=== PATIENT | female | born 1955 | race Caucasian/White ===

== ENCOUNTER → 2017-07-12 | Day surgery (SDC) | payer OTHER ==
[~2017-07-12] VITALS: Ht 167.6 cm; Wt 72.6 kg
[~2017-07-12] MED LIST: ALBU8.5H2 INHALATION; Atropine 0.4 mg/mL Inj IVPUSH PRN; GABA-502 PO; HYDR25CA PO; IBUP400T22 PO; Lactated Ringer's 1,000 ML IV ONE; Lactated Ringer's 1,000 ML IV SCH; MORP-33 PO; MORP15TA PO; MetoCLOpramide 5 mg/mL 2 mL Inj IVPUSH PRN; Ondansetron 2 mg/mL 2 mL Inj IVPUSH PRN; Propofol 10,000 mCg/mL 20 mL Inj ONE; TRAM50TA2 PO; fentaNYL-PF 50 mCg/mL 2 mL Inj ONE
[2017-07-12 12:04] VITALS: BP 111/72; PULSE 59; RESP 17; O2SAT 96
--- NOTE | 2017-07-12 12:35 | PCM.HPANE ---
Patient Data Surgeon Admitting Provider: Attending Provider:Randal Menezes MD Primary Care Physician:Fawn Monsalve Other Provider:Lisa Juárez Anesthesia Reason for Visit Epigastric Pain Ht/WT & BMI Height (Feet): 5 Height (Inches): 6 Weight (Kilograms): 72.57 Body Mass Index 25.00 Allergies Coded Allergies: Sulfa (Sulfonamide Antibiotics) (Verified Allergy, Severe, HEMATURIA/ kidney issues/HIVES, 07/08/17) amoxicillin (Verified Allergy, Severe, N/V/HIVES, 07/08/17) ciprofloxacin (Verified Allergy, Severe, THROAT SWELLING/HIVES, 07/08/17) erythromycin base (Verified Allergy, Severe, N/V; DIARRHEA/HIVES, 07/08/17) ampicillin (Verified Adverse Reaction, Severe, N/V/HIVES, 07/08/17) codeine (Verified Adverse Reaction, Severe, N/V, 02/14/16) Past Anesthesia History Anesthesia History: Denies:: Abnormal Airway, Anesthesia Reactions, Difficult Intubation, Fam Anesthesia Reaction, Fam Malignant Hypertherm, Malignant Hyperthermia Diabetes History Hx Diabetes?: No MRSA MRSA: No Medications Hypertension Medication: No Home Meds Incl Beta Jc: No Reported Medications Albuterol HFA (Proair HFA)8.5 Gm Hfa.aer.ad2 Puffs INHALATION Q4H #1 INHALER 07/08/17 Morphine Sulfate ER 30 Mg Iqzblh04 Mg PO BID 07/08/17 Morphine Sulfate 15 Mg Dmtnov47 Mg PO 07/08/17 Gabapentin 300 Mg Uqazihe151 Mg PO TID Ref 0 07/08/17 Ibuprofen 400 Mg Brylne952 Mg PO BID PRN For Pain Ref 0 02/15/15 Discontinued Reported Medications Tramadol 50 Mg Fpfqxf17-126 Mg PO TID PRN For Pain Ref 0 07/23/15 Hydroxyzine Pamoate (Vistaril)25 Mg Fvfdikq50 Mg PO QID PRN For Itching Ref 0 04/24/14 Morphine Sulfate CR 30 Mg Tablet.er15 Mg PO BID 02/15/15 History History of ENT Problems?: Yes HEENT History: Denies:: Abnormal Airway Difficult Intubation Dysphagia Hearing Problem Denture Type: Full- Upper Full- Lower Teeth Condition: Missing Teeth Hx of Heart Problems?: Yes Cardiovascular History: Positive for:: Congestive Heart Failure (post surgical episode of edema 12/2014) Denies:: AICD Abdominal Aortic Aneurism Atrial Fibrillation Cardiac Surgery Chest Pain Coronary Artery Disease Edema Heart Murmur Hypertension Irregular Heartbeat Pacemaker Peripheral Vascular Rheumatic Fever Thrombophlebitis Valvular Heart Disease Hx of Respiratory Problem?: No Respiratory History: Denies:: Use of C-PAP Machine Other Resp Pertinent History: hx of bronchitis Hx Neurologic Problems?: No Neurological History: Denies:: CVA Headaches Multiple Sclerosis Parkinson's Disease Seizures Hx of GI Problems?: Yes Hx of Problems?: No Female Hx: Denies:: Currently Problems with Breasts? Skin History: Denies:: History Skin Disorders? Pressure Ulcers Hx Musculoskeletal Problems?: Yes Musculoskeletal History: Positive for:: Joint Replacement (right shoulder) Musculoskeletal Trauma (current injections for right hip pain) Other History/Comment chronic pain Hx of Psycho/Social Problems?: No Psycho Social History: Denies:: Anxiety Hx Depression Hx Surgeries?: Yes (rectal repair,ovarian cyst removed.,tonsillectomy, lips.right shoulder arthr) Hx Any Other Health Problems?: Yes Other History: Denies:: Cancer Thyroid Disease History Blood Transfusions: Denies:: Blood Transfusions Hx Diabetes: No Hx Alcohol Use: NoHx Substance Use: No Smoking Status: Former Smoker Have You Smoked inLast 12 mo: No Stop/Bang Treated for Sleep Apnea?: No Do You Have a CPAP Machine?: No S-Snoring: Do You Snore Loudly: No T-Tired: feel tired, fatigued: No O-Obsered: Observed not breath: No P-Blood Pressure: treated: No B- Body Mass Index > 35 kg/m2: No A- Age over 50: Yes N- Neck Large Circumference: No G- Gender Male: No MARIELA Total Score: 1 MARIELA Risk Assessment: Low Risk, <3 Yes Risk Assessment Category Category 1A: Patient has history of documented sleep apnea, and HAS NOT received any narcotic, sedative or anesthesia administration during this stay. Category 1B: Patient has history of documented sleep apnea, and HAS received any narcotic , sedative or anesthesia administration during this stay Category 2: Patient has SUSPECTED Obstructive Sleep Apnea, and HAS received any narcotic , sedative or anesthesia administration during this stay. Category 3: Patient has SUSPECTED Obstructive Sleep Apnea and HAS NOT received narcotic, sedative or anesthesia administration during this stay. Category 4: Outpatient in Procedural Areas with known sleep apnea or who screen positive for High Risk via the STOP/BANG questionnaire. Exam Exam Vital Signs Vital Signs Date Time Temp Pulse Resp B/P Pulse Ox O2 Delivery O2 Flow Rate FiO2 07/12/17 12:04 59 17 111/72 96 Room Air General Appearance: Alert, Oriented X3, Cooperative, No Acute Distress HEENT/AIRWAY: MP 2 Lungs: Clear to Auscultation, Normal Air Movement Heart: Exam Unremarkable, Regular Rate/Rhythm, No Murmurs/Rubs/Gallops Plan Impression Patient chart reviewed, patient interviewed and anesthestic plan with risks, benefits, and alternatives discussed, and informed consent obtained. NPO per Anesth. Guidelines: Yes ASA Physical Status: ASA3 Severe Disease Anesthetic Plan: GA Bene/Risks/Altern/Consents: Yes HP Complete Prior to Induction: Yes Amadou Ibanez MD Jul 12, 2017 12:35
[2017-07-12 13:00] VITALS: BP 90/62; PULSE 57; RESP 16; O2SAT 97
[2017-07-12 13:10] VITALS: BP 98/66; PULSE 55; RESP 16; O2SAT 97
[2017-07-12 13:20] VITALS: BP 100/64; PULSE 49; RESP 16; O2SAT 98
--- NOTE | 2017-07-12 14:09 | PCM.ANEP1 ---
Post Anesthesia PACU Phase 1 Assessment Vital Signs Vital Signs Date Time Temp Pulse Resp B/P Pulse Ox O2 Delivery O2 Flow Rate FiO2 07/12/17 13:20 49 16 100/64 98 Room Air 07/12/17 13:10 55 16 98/66 97 Room Air 07/12/17 13:00 57 16 90/62 97 Room Air 07/12/17 12:04 59 17 111/72 96 Room Air Anesthetic Administered: GA Level of Alertness: Awake, talking FAIRCHILD's with Equal Strength: Yes Pain: No Nausea or Vomiting: No CV Function & Hydration Stable: Yes Airway Device: Oxygen Delivery: Nasal Cannula Lungs: Clear to Auscultation, Normal Air Movement PACU Phase 2 Assessment Complications: No Follow up Care: N/A Patient Instructions Provided: N/A Amadou Ibanez MD Jul 12, 2017 14:09
--- NOTE | 2017-07-12 20:33 | ENDO ---
[address] [address] ENDOSCOPY PROCEDURE PATIENT: GARY MUJICA : 1955 MR#: [id number] ADMIT: 07/12/2017 JOB ID: [id number] DATE: 07/12/2017 PRIMARY PROVIDER: CHAU Cuenca PROCEDURE: Esophagogastroduodenoscopy with biopsy. INDICATIONS: A 62-year-old female on chronic opiates who has experienced some intermittent nausea, vomiting, epigastric pain, and about a 25-pound weight loss over the last year or so. EGD is therefore pursued. EQUIPMENT: GIF-H180. SEDATION: Monitored anesthesia as provided by Dr. Amadou Ibanez. COMPLICATIONS: None identified. PROCEDURE INFORMATION: After the risks and benefits were explained, written and verbal informed consent was obtained, the patient was brought into the endoscopy suite and placed in the left lateral decubitus position. Sedation was achieved as above. The scope was introduced into the mouth through the bite block and advanced to the second portion of the duodenum. The scope was slowly withdrawn to carefully examine the mucosa for any defects or lesions. Retroflexed views were accomplished in the stomach. The stomach was decompressed, the scope removed from the patient who tolerated the procedure well. FINDINGS: 1. Duodenum: No significant pathology appreciated from the bulb through to the second portion. Considering the patient's symptoms, including weight loss, random biopsies were taken from D2 for exclusion of celiac. 2. Stomach: No mass lesions. No outlet obstruction. No evidence of any retained food debris. The patient had a moderate diffuse gastropathy with some obviously eroded areas in the proximal antrum. The irregular-appearing mucosa was targeted for biopsy x2 and submitted for histopathology/exclusion of H. pylori infection. Otherwise, mucosal exam throughout the stomach was relatively unremarkable including retroflexed views of the LES. 3. Esophagus: The squamocolumnar junction correlated with the top of the gastric folds. The GEJ was at about 39 cm from the incisors. There was evidence of very subtle LA grade A erosive esophagitis. No strictures. No mass lesions. No other pathology noted throughout. ENDOSCOPIC DIAGNOSES: 1. Subtle sliding hiatal hernia (not mentioned above). 2. Henry grade A erosive esophagitis. 3. Erosive gastropathy. RECOMMENDATIONS: 1. Await histopathology. 2. Consider anti-reflux therapy. 3. In that we did not identify the source for the patient's symptoms including the 25-pound weight loss, CT abdomen and pelvis is again requested.
--- NOTE | 2017-07-14 12:15 | PATH ---
SURGICAL PATHOLOGY Attending Physician:Paddy Andrade CASE STATUS: Signed Out PATIENT NAME: GARY MUJICA PID: [id number] : 1955 DATE COLLECTED:07/12/2017 20:23 SPECIMEN: 1: Duodenum, Biopsy 2: Gastric, Biopsy CLINICAL HISTORY: 1). DUODENUM BIOPSY 2). GASTRIC BIOPSY, RULE OUT H PYLORI FINAL DIAGNOSIS: 1.DUODENUM, BIOPSY: SMALL BOWEL MUCOSA WITH NO DIAGNOSTIC ABNORMALITY. Negative for inflammation, histologic evidence of celiac disease, granulomas, dysplasia and malignancy. 2.GASTRIC BIOPSY: ANTRAL AND BODY MUCOSA WITH NO DIAGNOSTIC ABNORMALITY. Negative for inflammation and Helicobacter organisms. Negative for intestinal metaplasia, dysplasia and malignancy. ICD10 R10.13 GROSS DESCRIPTION: The specimen is received in two formalin filled containers labeled with the patient's name. 1). The specimen is labeled "duodenum" and consists of 2 portions of tissue which aggregate to 0.2 x 0.2 x 0.2 CM. The specimen is entirely submitted in cassette 1A. 2). The specimen is labeled "gastric" and consists of 2 portions of tissue which aggregate to 0.2 x 0.2 x 0.2 CM. The specimen is entirely submitted in cassette 2A. 07/12/2017KY MICRO DESCRIPTION: See diagnosis. ICD-9 CODES: CPT CODES: 1: 72269 2: 66309 Electronically Signed Out Geo Ballesteros MD, PhD [facility] Pathology [facility], [place] [address] Technical component performed at [facility], [address] [place] [address] [address], [place], [address]
== END | disposition home or self-care (01) ==
LOC: END 00:21
PROVIDERS: ATTEND Internal Medicine Gastroenterology
DX: K44.9 Diaphragmatic hernia without obstruction or gangrene (principal); K22.10 Ulcer of esophagus without bleeding; K31.9 Disease of stomach and duodenum, unspecified; R10.13 Epigastric pain; R63.4 Abnormal weight loss; B18.2 Chronic viral hepatitis C; I50.9 Heart failure, unspecified; K21.9 Gastro-esophageal reflux disease without esophagitis; M81.0 Age-related osteoporosis without current pathological fracture; M54.5 Low back pain; Z79.891 Long term (current) use of opiate analgesic; Z68.24 Body mass index [BMI] 24.0-24.9, adult; Z96.611 Presence of right artificial shoulder joint; Z87.891 Personal history of nicotine dependence
CPT/HCPCS: 43239; 88305; J2704; J3010; J7120